=== PATIENT | female | born 1955 | race Two or more races ===

== ENCOUNTER 2016-05-16 03:30 | Inpatient (IN) | payer MEDICAID ==
[2016-05-16 04:12] VITALS: BP 100/52
[2016-05-16] MEDS ORDERED: D5-0.45NS 1,000 ML IV SCH (04:15)
[2016-05-16] MEDS ORDERED: Sodium Chloride 0.45% 1,000 ML IV SCH (09:15)
[2016-05-16] MEDS ORDERED: Morphine Sulfate 2 mg/mL 1mL Syr IVP PRN (09:15)
[2016-05-16] MEDS ORDERED: guaiFENesin 200 MG/10 ML UDC PO PRN (09:15)
[2016-05-16] MEDS ORDERED: Albuterol Nebulizer 2.5mg/3mL IH PRN (09:15)
[2016-05-16] MEDS: INSULIN ASPART, RECOMBINANT 100 UNITS/ML SUBQ SCH ×3 (11:54→21:18)
[2016-05-16] MEDS: Hydrocodone/APAP 5mg/325mg Tab PO PRN ×2 (14:05→21:20)
--- NOTE | 2016-05-16 23:10 | Admit Criteria Form ---
Admit Criteria Forms - Admit Criteria Diagnosis: PYELONEPHRITIS, ACUTE Clinical Indications for Admission to Inpatient Care (Place 'X' for any and all applicable criteria): Admission is indicated for ANY ONE of the following 1,2,3,4,5 [ ]I. Outpatient treatment has failed or is not feasible (eg, multidrug- resistant organism).5 [ ]II. beyond 24 weeks' gestation6 [ ]III. Hemodynamic instability [ ]IV. Immunocompromised state (eg, AIDS, diabetes, sickle cell disease) [ ]V. Known renal or urologic abnormalities (eg, indwelling catheter, structural abnormalities, renal calculi, urinary stent, previous urologic surgery) [ ]. Condition that requires drainage procedure, including ANY ONE of the following: [ ]a) Urinary obstruction [ ]b) Pyelitis [ ]c) Pyonephrosis [ ]d) Renal or perinephric abscess [ ]e) Emphysematous pyelonephritis 7 [X]VII. Inpatient admission required rather than observation care (Also use Pyelonephritis, Acute: Observation Care Criteria as appropriate) because of ANY ONE of the following: [ ]a) High fever or infection requiring inpatient admission as indicated by ANY ONE of [id number] [ ]A. Documented bacteremia [ ]B. Temp>104.9 [id number] (oral) [ ]C. Temp>103.10F (oral) or <96.80F (rectal) that does not respond to all emergency treatment [ ]b) Acute renal failure [ ]c) Other significant finding or clinical condition judged not to be within the scope of observation care [ ]d) IV fluid to replace significant ongoing (eg, for over 24hrs) losses (> 3 L/m2 per day) [X]e) Other condition,treatment or monitoring requiring inpatient admission The original [facility] content created by [employer] has been revised. The portions of the content which have been revised are identified through the use of italic text or in bold, and [facility] has neither reviewed nor approved the modified material. All other unmodified content is copyright [facility]. Please see references footnoted in the original [facility] [employer] edition 2016 Admit Criteria Met?: Yes
--- NOTE | 2016-05-16 23:20 | History & Physical ---
CHIEF COMPLAINT: Abdominal pain and pelvic pain, diagnosis of UTI. HISTORY OF PRESENT ILLNESS: This is a 61-year-old female with history of diabetes, hypercholesterolemia, hypertension, who was admitted initially at [facility] secondary to abdominal pain and pelvic pain. The patient was diagnosed with pyelonephritis. The patient was transferred for further treatment. The patient had fever and chills. PAST MEDICAL HISTORY: As mentioned in history present illness. PAST SURGICAL HISTORY: Denies surgeries in the past. ALLERGIES: SULFA. MEDICATIONS: Aspirin, benazepril, Prozac, Neurontin, glimepiride, Robaxin, ____, glucophage. FAMILY HISTORY: Noncontributory. SOCIAL HISTORY: Smokes occasionally, drinks occasionally, no intravenous drug use. The patient is disabled. Single with 2 children. REVIEW OF SYSTEMS: GENERAL: The patient complains of not feeling well, with some chills. HEENT: No blurred vision. NECK: No neck pain. LUNGS: Negative COPD or asthma. HEART: The patient with hypertension, diabetes. ABDOMEN: The patient with nausea and vomiting and abdominal discomfort something with the pelvis. NEUROLOGIC: No headache, seizure or syncope. PSYCHIATRIC: The patient with depression. PHYSICAL EXAMINATION: VITAL SIGNS: Blood pressure 106/50, respirations 18, pulse 112, temperature ____. GENERAL: An elderly female, morbidly obese. NECK: Supple. No mass. LUNGS: Equal breath sounds with few rhonchi. HEART: Regular rate and rhythm without appreciable murmurs. ABDOMEN: Soft, nontender, globular. Positive pain on deep palpation. EXTREMITIES: No clubbing, cyanosis or edema. There is movement of all 4 extremities. LABORATORY DATA: ____, BUN 11, creatinine 0.8. WBC was 15.9, hemoglobin 11.5, platelets 134. UA ____ hemoglobin, greater than 20 wbc's the UA. ASSESSMENT: 1. Urosepsis. 2. Right pyelonephritis. 3. Hypertension. 4. Hypercholesterolemia. 5. Depression. 6. Atypical chest pain. 7. Abdominal pain. 8. Pelvic pain. 9. Leukocytosis. 10. Anemia. 11. Thrombocytopenia. 12. Hyponatremia. 13. Lactic acidosis. PLAN: We will continue the patient on IV hydration and IV antibiotic. We will perform abdominal and pelvic ultrasound. Continue IV antibiotic. We will follow the patient's urine culture. We will continue to monitor the patient closely. JOB# [id number]
[2016-05-17] MEDS: INSULIN ASPART, RECOMBINANT 100 UNITS/ML SUBQ SCH ×3 (06:45→21:00)
[2016-05-17] MEDS: Hydrocodone/APAP 5mg/325mg Tab PO PRN ×2 (08:42→16:36)
--- NOTE | 2016-05-17 12:18 | Diagnostic Imaging Report ---
Ultrasound abdomen HISTORY: Abdominal pain COMPARISON: None Technique: Sonography of the abdomen was performed in multiple planes. FINDINGS: Exam is markedly limited due to body habitus and bowel gas. The liver demonstrates increased echogenicity and measures 21.3 cm. The liver margins are not well-defined limiting evaluation for focal lesions. No evidence of gallstones or gallbladder wall thickening. The common bile duct was not visualized. The pancreas was also not visualized due to bowel gas. The right kidney measures 13.5 cm. The left kidney measures 12.9 cm. No evidence of focal lesions or hydronephrosis. The spleen measures 11.1 cm. IMPRESSION: Limited exam due to body habitus and bowel gas Hepatomegaly with increased echogenicity of the liver which may be due to underlying fatty infiltration, please correlate clinically. No evidence of gallstones. Increased bilateral renal sizes, nonspecific. No evidence of hydronephrosis.
--- NOTE | 2016-05-17 13:10 | Diagnostic Imaging Report ---
Ultrasound pelvis HISTORY: Pelvic pain. Last LMP is 01/06/2001 COMPARISON: None Technique: Longitudinal and transverse sonographic sector images of the pelvis were obtained transabdominally. FINDINGS: Exam is limited as transvaginal images were not obtained. The uterus measures 7.4 x 2.6 x 4.5 cm. Endometrium measures 3 mm. The right ovary measures 2.7 x 1.8 cm. The left ovary measures 2.4 x 2 cm. No evidence of free fluid. IMPRESSION: The endometrium measures 3 mm. No evidence of free fluid or other focal abnormalities.
[2016-05-17] MEDS ORDERED: Magnesium Hydroxide (MOM) 30 mL UDC PO PRN (15:22)
--- NOTE | 2016-05-17 15:22 | Internal Medicine Prog Note ---
Internal Medicine Subjective - Subjective Patient seen and examined:: with staff, chart reviewed Patient is:: awake, verbal, denies CP, denies SOB Patient Complaints of:: congestion Per staff patient is:: no episodes of fall, eating well Internal Medicine Objective - Results Recent Labs: Laboratory Last Values POC Glucose 210 MG/DL (70 - 105) H 05/17/16 05:32 - Physical Exam Vitals and I&O: Vital Signs Temp 97.6 F 05/17/16 12:30 Pulse 80 05/17/16 12:30 Resp 20 05/17/16 12:30 BP 119/59 05/17/16 12:30 Pulse Ox 96 05/17/16 12:30 Intake & Output 05/16/16 05/17/16 05/17/16 18:59 06:59 18:59 Intake Total 200 200 100 Balance 200 200 100 Intake: Intake, IV Amount 200 200 100 Piperacillin Sodium/ 200 200 100 Tazobact 4.5 gm In Sodium Chloride 0.9% 100 ml @ 100 mls/hr IV Q8HR [facility] Rx #:[id number] Other: Stool Characteristics Soft Brown Active Medications: Current Medications Acetaminophen (Tylenol) 650 mg PO Q4HR PRN PRN Reason: Mild Pain or Fever >101 Stop: 07/15/16 09:14 Acetaminophen/Hydrocodone Bitart ([place] 5mg/325mg) 1 tab PO Q4H PRN PRN Reason: Pain (Moderate) Stop: 07/15/16 09:14 Last Admin: 05/17/16 08:42 Dose: 1 tab Albuterol Sulfate (Albuterol 2.5mg/3ml Neb Ud) 2.5 mg IH Q2HR PRN PRN Reason: Shortness of Breath or Wheeze Stop: 07/15/16 09:14 Aspirin (Ecotrin) 81 mg PO DAILY [facility] Stop: 07/16/16 08:59 Benazepril HCl (Lotensin) 20 mg PO DAILY [facility] Stop: 07/16/16 08:59 Last Admin: 05/17/16 08:45 Dose: 20 mg Fluoxetine HCl (Prozac) 40 mg PO DAILY [facility] PRN Reason: Protocol Stop: 07/16/16 08:59 Gabapentin (Neurontin) 300 mg PO TID [facility] Stop: 07/15/16 13:59 Last Admin: 05/17/16 08:32 Dose: 300 mg Guaifenesin (Robitussin) 200 mg PO Q4HR PRN PRN Reason: Cough or Congestion Stop: 07/15/16 09:14 Heparin Sodium (Porcine) (Heparin) 5,000 units SUBQ Q12HR [facility] Stop: 07/15/16 20:59 Last Admin: 05/17/16 08:33 Dose: 5,000 units Hydroxyzine HCl (Atarax) 25 mg PO HS PRN; Protocol PRN Reason: Sleeplessness Stop: 07/15/16 09:13 Piperacillin Sod/Tazobactam (Sod 4.5 gm/ Sodium Chloride) 100 mls @ 100 mls/hr IV Q8HR [facility] Stop: 07/15/16 04:59 Last Infusion: 05/17/16 14:42 Dose: Infused Sodium Chloride (Nacl 0.45%) 1,000 mls @ 80 mls/hr IV .[id number] [facility] Stop: 07/15/16 09:14 Insulin Aspart (Novolog) 0 units SUBQ ACHS [facility] PRN Reason: Protocol Stop: 07/15/16 11:29 Last Admin: 05/17/16 13:00 Dose: 2 units Metformin HCl (Glucophage) 850 mg PO TID [facility] Stop: 07/15/16 13:59 Last Admin: 05/17/16 08:32 Dose: 850 mg Methocarbamol (Robaxin) 500 mg PO TID PRN PRN Reason: musle pain Stop: 07/15/16 09:13 Miscellaneous (Glimepiride [Glimepiride]) 4 mg PO BID [facility] Stop: 07/15/16 16:59 Miscellaneous (Clinical Monitoring) 1 ea [facility] PRN PRN PRN Reason: RENAL DOSING-METFORMIN Stop: 07/15/16 11:08 Morphine Sulfate (Morphine) 2 mg IVP Q4HR PRN PRN Reason: Pain (Severe) Stop: 07/15/16 09:14 Ondansetron HCl (Zofran) 4 mg IV Q8H PRN PRN Reason: Nausea / Vomiting Stop: 07/15/16 09:14 Last Admin: 05/16/16 10:43 Dose: 4 mg Simvastatin (Zocor) 40 mg PO HS [facility] PRN Reason: Protocol Stop: 07/15/16 20:59 Last Admin: 05/16/16 21:17 Dose: 40 mg General: alert HEENT: NC/AT, PERRLA Neck: Supple, No JVD Lungs: congested Cardiovascular: RRR, Normal S1, Normal S2 Abdomen: soft non-tender, globular, positive bowel sound Extremities: excoriation Neurological: no change Internal Medicine Assmt/Plan - Assessment Assessment: uti, pylonephritis dm htn obesity constipation - Plan Plan: cont on iv abx iv hydration check labs and cx will add laxative u\s noted dw rn and pt
[2016-05-18 06:44] LABS: % BASOPHILS 0.3 % (0.0-2.0); % EOSINOPHILS 1.8 % (0.0-5.0); % LYMPHOCYTES 16.3 % (20.0-50.0); % MONOCYTES 7.8 % (2.0-10.0); % NEUTROPHILS 73.8 % (40.0-80.0); HEMATOCRIT 31.2 % (35.0-45.0); HEMOGLOBIN 10.7 gm/dL (11.7-15.5); MEAN CELL VOLUME 81.9 fl (81-100); MEAN CORPUSCULAR HGB CONC 34.2 pg (28.0-36.0); MEAN PLATELET VOLUME 8.5 fl; NEUTROPHILE ABSOLUTE 7.7 Th/cmm (1.8-8.0); PLATELET COUNT 219 Th/cmm (150-400); RED BLOOD COUNT 3.81 Mil/cmm (3.80-5.10); RED CELL DISTRIBUTION WIDTH 12.6 % (11.5-20.0); WHITE BLOOD COUNT 10.4 Th/cmm (4.8-10.8)
[2016-05-18] MEDS: INSULIN ASPART, RECOMBINANT 100 UNITS/ML SUBQ SCH ×2 (07:08→12:48)
[2016-05-18 07:12] LABS: ALB/GLOB RATIO 1.2 (1.0-1.8); ALKALINE PHOSPHATASE 72 U/L (34-104); BILIRUBIN,TOTAL 0.5 mg/dL (0.3-1.0); BUN - UREA NITROGEN 8 mg/dL (7-25); BUN/CREATININE RATIO 13.3; CALCIUM SERUM 9.4 mg/dL (8.6-10.3); CARBON DIOXIDE 25.4 mEq/L (21.0-31.0); CHLORIDE 101 mEq/L (98-107); CREATININE - SERUM 0.6 mg/dL (0.6-1.2); GLUCOSE 143 mg/dL (70-105); MAGNESIUM 2.1 mg/dL (1.9-2.7); POTASSIUM SERUM 3.4 mEq/L (3.5-5.1); SGOT 17 U/L (13-39); SGPT/ALT 17 U/L (7-52); SODIUM SERUM 137 mEq/L (136-145)
[2016-05-18 07:55] LABS: TSH 2.72 uIU/ml (0.34-5.60)
[2016-05-18] MEDS: Hydrocodone/APAP 5mg/325mg Tab PO PRN (08:59)
[2016-05-18 12:12] LABS: URINE BILIRUBIN NEGATIVE (NEGATIVE); URINE BLOOD TRACE (NEGATIVE); URINE COLOR YELLOW; URINE GLUCOSE (UA) NEGATIVE (NEGATIVE); URINE KETONE NEGATIVE (NEGATIVE); URINE PH 6.5; URINE PROTEIN NEGATIVE (NEGATIVE); URINE UROBILINOGEN 0.2 E.U./dL (0.2 - 1.0)
[2016-05-18 12:15] LABS: URINE BACTERIA NONE SEEN /hpf (NONE SEEN); URINE EPITHELIAL CELLS OCCASIONAL /lpf (FEW); URINE RBC 0-1 /hpf (0-5); URINE WBC 0-2 /hpf (0-5)
--- NOTE | 2016-05-18 21:08 | Discharge Summary ---
INTERNAL MEDICINE DISCHARGE SUMMARY: CHIEF COMPLAINT: Abdominal pain, pelvic pain and urinary tract infection. FINAL DIAGNOSES: 1. Urinary tract infection/pyelonephritis. 2. Hypertension. 3. Hypercholesterolemia. 4. Depression. 5. Abdominal pain. 6. Pelvic pain. 7. Anemia. 8. Electrolyte abnormalities. 9. Lactic acidosis. HISTORY OF PRESENT ILLNESS: This is a 61-year-old female with history of diabetes, hypercholesterolemia and hypertension, who was admitted. She was seen initially at [facility] and diagnosed with UTI and pelvic pain. The patient was needing inpatient management, hence the patient was transferred for continued care and treatment. PHYSICAL EXAMINATION: VITAL SIGNS: Blood pressure 140/66, respirations 18, pulse 76, temperature 98. GENERAL: Elderly female, obese. NECK: Supple. No mass. LUNGS: Equal breath sounds, few rhonchi. HEART: Regular rate and rhythm without appreciable murmurs. ABDOMEN: Soft, nontender, globular. EXTREMITIES: Positive excoriations. NEUROLOGIC: Limited. HOSPITAL COURSE: The patient was admitted to the Medical Floor, continued on IV hydration and IV antibiotic, given Zosyn. Urine culture was sent. Repeat urinalysis came back clear. There was also abdomen and pelvis ultrasound, which was essentially negative, only significant for hepatomegaly. The patient was cleared for discharge. CONDITION ON DISCHARGE: Fair. DISCHARGE INSTRUCTIONS: The patient is to continue current medical regimen. The patient is to be prescribed with Levaquin and will follow up with Dr Flores. JOB# [id number]
[2016-05-19 11:15] LABS: FOLIC ACID 15.7 ng/mL (>3.0)
== END 2016-05-18 17:20 | disposition home or self-care (01) | DRG 720 ==
LOC: MSI 03:30
PROVIDERS: ADMIT Internal Medicine; ATTEND Internal Medicine
DX: A41.9 Sepsis, unspecified organism (principal); E87.2 Acidosis; E87.1 Hypo-osmolality and hyponatremia; I10 Essential (primary) hypertension; D64.9 Anemia, unspecified; E11.9 Type 2 diabetes mellitus without complications; N12 Tubulo-interstitial nephritis, not specified as acute or chronic; D69.6 Thrombocytopenia, unspecified; E78.5 Hyperlipidemia, unspecified; R07.89 Other chest pain; F32.9 Major depressive disorder, single episode, unspecified; R10.2 Pelvic and perineal pain; F17.210 Nicotine dependence, cigarettes, uncomplicated; E78.00 Pure hypercholesterolemia, unspecified; E66.9 Obesity, unspecified; Z68.35 Body mass index [BMI] 35.0-35.9, adult; K59.00 Constipation, unspecified; Z88.2 Allergy status to sulfonamides; Z88.8 Allergy status to other drugs, medicaments and biological substances; Z79.82 Long term (current) use of aspirin; N39.0 Urinary tract infection, site not specified
CPT/HCPCS: 36415-UA; 76700-TC; 76856-TC; 80053-TC; 81001-TC; 82140-TC; 82607-90; 82746-90; 82948-90; 83036-90; 83735-TC; 84443-TC; 85025-TC; 94760; J1644; J1815; J2405; J2543; Z7610